=== PATIENT | female | born 1980 | race Caucasian/White ===

== ENCOUNTER 2022-11-15 03:52 | Day surgery (SDC) | payer OTHER ==
[2022-11-12 12:15] VITALS: BMI 40.8
[2022-11-15] MEDS ORDERED: MIDAZOLAM HCL 2 MG/2 ML SINGLE DOSE VIAL ONE (12:57)
[2022-11-15] MEDS ORDERED: PROPOFOL 20 ML ONE ×2 (12:57→13:32)
[2022-11-15] MEDS ORDERED: ceFAZolin SODIUM 1 GM VIAL IVPB ONE (13:41)
[2022-11-15] MEDS ORDERED: ONDANSETRON 4 MG/2 ML VIAL ONE (13:50)
[2022-11-15] MEDS ORDERED: ceFAZolin SODIUM 1 GM VIAL ONE (13:50)
[2022-11-15] MEDS ORDERED: DEXAMETHASONE SOD PHOSPHATE 4 MG/1 ML VIAL ONE (13:50)
[2022-11-15] MEDS ORDERED: KETOROLAC TROMETHAMINE 30 MG/1 ML VIAL ONE (13:50)
[2022-11-15] MEDS ORDERED: IBUPROFEN 600 MG TABLET (FP) PO PRN (14:07)
[2022-11-15] MEDS ORDERED: IBUPROFEN 800 MG/8 ML IJ IVPB PRN (14:07)
[2022-11-15] MEDS ORDERED: ONDANSETRON 4 MG/2 ML VIAL IVPUSH PRN ×2 (14:07→14:09)
[2022-11-15] MEDS ORDERED: oxyCODONE HCL 5 MG TABLET PO PRN (14:07)
[2022-11-15] MEDS ORDERED: ACETAMINOPHEN 1000 MG/100 ML BAG IVPB ONE (14:10)
[2022-11-15] MEDS ORDERED: ELECTROLYTE-148 SOLN 1,000 ML IV SCH (14:15)
[2022-11-15] MEDS ORDERED: LACTATED RINGERS SOLUTION 1,000 ML IV SCH (14:15)
[2022-11-15] MEDS ORDERED: ACETAMINOPHEN INJECTION 100 ML IVPB ONE (14:19)
[2022-11-15 15:51] VITALS: RESP 18; TEMP 97.8
[2022-11-15 17:00] VITALS: BP 126/82; PULSE 52
== END 2022-11-15 16:45 | disposition home or self-care (01) ==
LOC: JASU-SURG 03:52
PROVIDERS: ATTEND Obstetrics & Gynecology
PROC: 0UB98ZZ Excision of Uterus, Via Natural or Artificial Opening Endoscopic (ICD-10-PCS; principal; 2022-11-15 14:00)
DX: N93.9 Abnormal uterine and vaginal bleeding, unspecified (principal); N84.0 Polyp of corpus uteri
CPT/HCPCS: 81025; 88305-TC; 94760